=== PATIENT | male | born 1955 | race Caucasian/White ===

== ENCOUNTER 2023-03-21 08:00 | Outpatient (RCR) | payer MEDICARE, SELFPAY | END 2023-05-15 09:00 | disposition home or self-care (01) | LOC: PT 08:00 | PROVIDERS: Visit Provider Student in an Organized Health Care Education/Training Program | DX: M54.16 Radiculopathy, lumbar region (principal) | CPT/HCPCS: 97010; 97012; 97014; 97110; 97140; 97163; 97164; G0283 ==

== ENCOUNTER 2023-12-02 07:00 | Outpatient (RCR) | payer MEDICARE, SELFPAY | END 2023-12-09 11:30 | disposition home or self-care (01) | LOC: PT 07:00 | PROVIDERS: Visit Provider Student in an Organized Health Care Education/Training Program | DX: M54.16 Radiculopathy, lumbar region (principal) | CPT/HCPCS: 97010; 97012; 97014; 97110; 97163; 97164; G0283 ==